=== PATIENT | male | born 1990 | race Two or more races ===

== ENCOUNTER 2017-08-28 21:27 | Emergency (ER) | payer OTHER ==
[2017-08-29] MEDS: ALPRAZOLAM 0.25 MG TAB PO (00:27)
== END 2017-08-29 01:13 | disposition home or self-care (01) ==
LOC: FTE 21:27
DX: F41.9 Anxiety disorder, unspecified (principal)
CPT/HCPCS: 99283; Z7502

== ENCOUNTER 2017-12-07 16:23 | Emergency (ER) | payer OTHER ==
[2017-12-07] MEDS: ALPRAZOLAM 1 MG TAB PO (17:15)
== END 2017-12-07 18:25 | disposition home or self-care (01) ==
LOC: FTE 18:25
DX: F41.0 Panic disorder [episodic paroxysmal anxiety] (principal); S93.402A Sprain of unspecified ligament of left ankle, initial encounter; W01.0XXA Fall on same level from slipping, tripping and stumbling without subsequent striking against object, initial encounter; Y92.9 Unspecified place or not applicable
CPT/HCPCS: 73590; 73610; 99283-25

== ENCOUNTER 2017-12-18 22:35 | Emergency (ER) | payer OTHER ==
[2017-12-18] MEDS: ALPRAZOLAM 1 MG TAB PO (23:24)
[2017-12-18] MEDS ORDERED: ALPRAZOLAM 1 MG TAB PO (23:30)
== END 2017-12-19 00:07 | disposition home or self-care (01) ==
LOC: FTE 12-19 00:07
DX: Z76.0 Encounter for issue of repeat prescription (principal); F17.210 Nicotine dependence, cigarettes, uncomplicated
CPT/HCPCS: 99281; Z7502

== ENCOUNTER 2018-01-18 13:07 | Emergency (ER) | payer SELFPAY, OTHER | END 2018-01-18 16:32 | disposition left against medical advice (07) | LOC: FTE 13:07 | DX: Z53.21 Procedure and treatment not carried out due to patient leaving prior to being seen by health care provider (principal) ==

== ENCOUNTER 2018-02-25 01:09 | Emergency (ER) | payer OTHER | END 2018-02-25 04:40 | disposition home or self-care (01) | LOC: FTE 01:09 | DX: F41.9 Anxiety disorder, unspecified (principal); F17.210 Nicotine dependence, cigarettes, uncomplicated | CPT/HCPCS: 99281; Z7502 ==

== ENCOUNTER → 2019-01-24 | Emergency (ER) | payer OTHER ==
[2019-01-24] MEDS: traMADol 50 MG TAB PO (17:55)
[2019-01-24] MEDS: IBUPROFEN 600 MG TAB PO (17:55)
== END | disposition home or self-care (01) ==
LOC: FTE 17:31
DX: M54.2 Cervicalgia (principal); F17.210 Nicotine dependence, cigarettes, uncomplicated
CPT/HCPCS: 72040; 99283-25